=== PATIENT | male | born 1960 | race African-American/Black ===

== ENCOUNTER 2019-04-04 18:53 | Inpatient (IN) | payer BC, MEDICAID ==
[~2019-04-04] VITALS: Ht 185.4 cm; Wt 103.4 kg
[~2019-04-04 18:53] MED LIST: ASPI-378 PO; DOCU1CAP46 PO; FURO40TA4 PO; HYD25T PO; ISOS20TA56 PO; LOVA20TA4 PO; METH5TAB2 PO; NITR400A5 TL; NOR10T PO; SPIR25TA88 PO
[2019-04-04] MEDS ORDERED: ONDANSETRON HCL 4 MG/2 ML VIAL IV ONE (19:30)
[2019-04-04] MEDS ORDERED: MORPHINE SULFATE 4 MG/ML SYR/VIAL IV ONE (19:30)
[2019-04-04] MEDS ORDERED: ASPirin 81 mg TAB PO ONE (19:30)
[2019-04-04 19:37] LABS: Basophils # (auto) 0 uL; Basophils % (auto) 0.7 % (0.0-2.0); Eosinophils # (auto) 0.1 uL; Eosinophils % (auto) 2.2 % (0.0-7.0); Hematocrit 35.7 % (41.0-53.0); Hemoglobin 12.1 g/dL (13.5-17.5); Lymphocytes # (auto) 2.3 uL; Lymphocytes % (auto) 46.5 % (10.0-50.0); Mean Corpuscular Hemoglobin 31.5 pg (28.0-32.0); Mean Corpuscular Hgb Conc. 33.8 g/dL (32.0-36.0); Mean Corpuscular Volume 93.2 fL (80.0-100.0); Monocytes # (auto) 0.5 uL; Monocytes % (auto) 9.1 % (0.0-12.0); Neutrophils # (auto) 2.1 uL; Neutrophils % (auto) 41.5 % (37.0-80.0); Nucleated Red Blood Cells % 0.1 %; Platelet Count (auto) 147 10^3/uL (140-450); Red Blood Cells 3.83 10^6/uL (4.5-5.90); Red Cell Distribution Width 15.1 % (11.8-14.3)
[2019-04-04 19:55] LABS: Chloride 112 mmol/L (98-107); Glucose 102 mg/dL (74-106); Potassium 4.3 mmol/L (3.5-5.1); Sodium 143 mmol/L (136-145)
[2019-04-04 19:58] LABS: Alanine Aminotransferase 22 U/L (16-61); Albumin 3.4 g/dL (3.4-5.0); Aspartate Aminotransferase 18 U/L (15-37); Blood Urea Nitrogen 8 mg/dL (7-18); Calcium 8.2 mg/dL (8.5-10.1); Carbon Dioxide 22 mmol/L (21-32); GFR African American 128 mL/min; GFR Non-African American 106 mL/min; Magnesium 2.1 mg/dL (1.6-2.6)
[2019-04-04 20:01] LABS: Alkaline Phosphatase 96 U/L (45-117); Bilirubin, Total 0.3 mg/dL (0.2-1.0); Total Protein 6.6 g/dL (6.4-8.2)
[2019-04-04] MEDS ORDERED: FUROSEMIDE 40 MG/4 ML VIAL IV ONE (20:15)
[2019-04-04 21:08] LABS: Anion Gap 9 (5-15)
[2019-04-04] MEDS ORDERED: TEMAZEPAM 15 MG CAP PO PRN (21:45)
[2019-04-04] MEDS ORDERED: ONDANSETRON HCL 4 MG/2 ML VIAL IV PRN (21:45)
[2019-04-04] MEDS ORDERED: MORPHINE SULF INJ 2 MG/ML SYRINGE 1ML IV PRN (21:45)
[2019-04-04] MEDS ORDERED: ACETAMINOPHEN 325 MG TAB PO PRN (21:45)
[2019-04-04] MEDS: ISOSORBIDE MONONITRATE IR 20 MG TAB PO SCH (22:00)
[2019-04-04] MEDS: hydrALAZINE HCL 25 MG TAB PO SCH (22:00)
[2019-04-04] MEDS: ATORVASTATIN 20 MG TAB PO SCH (22:09)
[2019-04-04] MEDS: FAMOTIDINE 20 MG TAB PO SCH (22:09)
[2019-04-04 23:07] VITALS: BP 123/70
--- NOTE | 2019-04-04 23:07 | NUR ---
Telemetry admit from [facility] WRIGHT admitted to Telemetry unit. Patient oriented to FRANCE GARZA, primary RN, unit, room, bed, and unit policies regarding patient care and visiting hours. Patient now on continuous telemetry monitoring, tele box # 4 and telemetry reading on arrival to unit is sinus rhythm. Patient placed on bedside oxygen, weighed by bedscale and encouraged to call as needed. All questions and concerns addressed, patient verbalized understanding. Bed is locked in lowest position, side rails x 2 are up, and call light is within reach.
[2019-04-05] VITALS (7 sets, daily range): BP systolic 87–127; BP diastolic 42–81
[2019-04-05] MEDS: NITROGLYCERIN 0.4 MG SL TAB SL PRN ×2 (00:07→02:11)
--- NOTE | 2019-04-05 00:10 | NUR ---
CHEST PAIN Patient complaining of left sided chest pain (pain scale 8/10). Patient denies radiation, nausea, headache, or dizziness at this time. Patient is complaining of mild shortness of breath at this time and is currently on nasal cannula 2L. Patient states the chest pain has been on and off for the past 5 days. Patient states the chest pain is aggravated with both activity and at rest. Patient's vital signs are the following: BP: 123/70, HR: 86, RR: 16, TEMP: 97.8, and SPO2: 97% on 2L NC. EKG was performed and signed off by KAYA Gutierrez and placed in hardchart. Patient has a blood draw for troponin ordered for 0100 today. Nitroglycerin has been administered and patient states the chest pain is subsiding. Patient now rates the chest pain as 6/10.
--- NOTE | 2019-04-05 01:00 | NUR ---
REASSESSMENT: CHEST PAIN Patient noted laying in bed watching television with no S/S of distress noted. Even and unlabored respirations noted. Patient states the chest pain is (5/10). Bed is locked in lowest position, side rails x 2 are up, and call light is within reach.
[2019-04-05] MEDS ORDERED: SACU1TAB7 PO (01:08)
[2019-04-05] MEDS ORDERED: METH10T PO (01:08)
[2019-04-05] MEDS ORDERED: APIX2.5T PO (01:08)
[2019-04-05] MEDS ORDERED: ASPI-404 PO (01:08)
[2019-04-05] MEDS ORDERED: FURO1TAB32 PO (01:08)
[2019-04-05] MEDS ORDERED: ATOR20TA50 PO (01:08)
[2019-04-05] MEDS ORDERED: CAR3125T PO (01:08)
[2019-04-05] MEDS: HYDROcodone-ACET 5/325MG TAB PO PRN ×3 (01:42→21:54)
--- NOTE | 2019-04-05 02:55 | NUR ---
ROUNDS Patient laying in bed with eyes closed, even and unlabored respirations noted. No S/S of distress/SOB or pain noted. Bed is locked in lowest position, side rails x 2 are up, and call light is within reach.
[2019-04-05] MEDS ORDERED: FUROSEMIDE 20 MG/2 ML VIAL IV SCH (06:00)
--- NOTE | 2019-04-05 07:34 | NUR ---
CLOSING SHIFT NOTE Endorsed patient care to Carmen WEATHERS.
[2019-04-05] MEDS: FAMOTIDINE 20 MG TAB PO SCH ×2 (09:22→21:52)
[2019-04-05] MEDS: hydrALAZINE HCL 25 MG TAB PO SCH (09:23)
[2019-04-05] MEDS: ISOSORBIDE MONONITRATE IR 20 MG TAB PO SCH (09:23)
[2019-04-05 09:26] LABS: Calcium 8.4 mg/dL (8.5-10.1); Potassium 4.2 mmol/L (3.5-5.1)
[2019-04-05] MEDS ORDERED: SPIRONOLACTONE 25 MG TAB PO SCH (10:00)
[2019-04-05] MEDS ORDERED: ASPirin 81 mg TAB PO SCH (10:00)
[2019-04-05 10:35] LABS: Basophils # (auto) 0 uL; Basophils % (auto) 0.4 % (0.0-2.0); Eosinophils # (auto) 0.1 uL; Eosinophils % (auto) 1.4 % (0.0-7.0); Hematocrit 39.2 % (41.0-53.0); Hemoglobin 13.1 g/dL (13.5-17.5); Lymphocytes # (auto) 1.4 uL; Lymphocytes % (auto) 19.8 % (10.0-50.0); Mean Corpuscular Hemoglobin 31.3 pg (28.0-32.0); Mean Corpuscular Hgb Conc. 33.4 g/dL (32.0-36.0); Mean Corpuscular Volume 93.9 fL (80.0-100.0); Monocytes # (auto) 0.7 uL; Monocytes % (auto) 9.8 % (0.0-12.0); Neutrophils # (auto) 4.8 uL; Neutrophils % (auto) 68.6 % (37.0-80.0); Nucleated Red Blood Cells % 0.1 %; Platelet Count (auto) 137 10^3/uL (140-450); Red Blood Cells 4.18 10^6/uL (4.5-5.90); Red Cell Distribution Width 15.5 % (11.8-14.3); White Blood Cell 6.9 10^3/uL (4.4-10.8)
--- NOTE | 2019-04-05 10:56 | NUR ---
CONTACTED DR. ATKINSON TO UPDATE M.D. PATIENT STATES TAKES 38 MG OF METHADONE AT HOME VIA CLINIC CALLED AGES. Diana STATED TO VERIFY DOSE WITH CLINIC.
--- NOTE | 2019-04-05 11:00 | NUR ---
CALLED [facility] [phone], STAFF MEMBER REPORTED PATIENT IS GIVEN [address] ATKINSON UPDATED. NEW ORDERS GIVEN.
[2019-04-05] MEDS ORDERED: APIX5TAB OR (13:52)
--- NOTE | 2019-04-05 14:00 | NUR ---
ELIQUIS DOSAGE ADJUSTED IN RECONCILE MEDS. CALLED PATIENT'S PREFERRED PHARMACY. PHARMACIST STATES PATIENTS PRESCRIPTION IS 5MG BID, LAST FILLED IN SEPTEMBER 2018 WITH A QUANTITY OF 60. PATIENT STATES HE DOES NOT KNOW THE MG HE TAKES DAILY, BUT THE LAST TIME HE TOOK IT WAS LAST WEEK SOMETIME.
--- NOTE | 2019-04-05 16:30 | NUR ---
REPORT: Received report from SARAHY Morales. Assumed care of patient.
--- NOTE | 2019-04-05 16:38 | NUR ---
REPORT GIVEN TO GWEN Gamez. GWEN MADE AWARE OF PATIENT ELIQUIS RECONCILE MED, AND THAT IT IS NOT CURRENTLY IN THE [facility]. R.Tatiana. UPDATED THAT PATIENT IS AWAITING DR. NICHOLSON'S CONSULT. PATIENT IS ALSO AWAITING METHADONE MEDICATION. FAXED OVER INFORMATION AND SIGNED MEDICAL RELEASE FORMS TO [facility], PER [facility] REQUEST [facility] REQUESTING DOCUMENTATION OF PATIENT MG DOSAGE BEFORE ADMINISTERING MEDICATION. SARAHY HIDALGO. AWARE OF SITUATION.
[2019-04-05] MEDS ORDERED: METHADONE HCL 10 MG TAB PO ONE (17:30)
[2019-04-05] MEDS: FUROSEMIDE 20 MG/2 ML VIAL IV SCH (18:00)
--- NOTE | 2019-04-05 18:37 | NUR ---
IV ACCESS: Went to administer Lasix to right upper arm #20. IV infiltrated. Notified oncall Hospitalist, Zenon KIRKPATRICK. Order received for Lasix 40mg PO x1.
[2019-04-05] MEDS ORDERED: FUROSEMIDE 40 MG TAB PO ONE (18:45)
--- NOTE | 2019-04-05 19:11 | NUR ---
CLOSING SHIFT NOTE: Report given to Yaneli GARCIA. Endorsed care of patient. RN aware patient without IV access and pending oral Lasix administration.
[2019-04-05] MEDS: ATORVASTATIN 20 MG TAB PO SCH (21:52)
[2019-04-05] MEDS: SACUBITRIL-VALSARTAN 24mg/26mg TAB PO SCH (21:52)
[2019-04-05] MEDS ORDERED: FAMOTIDINE 20 MG TAB PO SCH (22:00)
[2019-04-06 05:10] VITALS: BP 102/73
[2019-04-06] MEDS: FUROSEMIDE 20 MG/2 ML VIAL IV SCH ×3 (06:02→19:57)
--- NOTE | 2019-04-06 07:15 | NUR ---
Opening Note Received report from manufacturing shift supervisor RN. Patient is awake, alert and oriented x4. No signs or symptoms of distress noted at this time. Patient states back pain 5/10, will medicate per orders. Reviewed plan of care with patient, patient verbalized understanding. Bed in low and locked position, call light within reach. Will continue to monitor Q1 hour and PRN.
[2019-04-06 09:00] VITALS: BP 106/69
[2019-04-06] MEDS: SACUBITRIL-VALSARTAN 24mg/26mg TAB PO SCH ×2 (09:31→21:04)
[2019-04-06] MEDS: ASPirin 81 mg TAB PO SCH (09:31)
[2019-04-06] MEDS: FAMOTIDINE 20 MG TAB PO SCH ×2 (09:31→21:04)
[2019-04-06] MEDS: METHADONE HCL 10 MG TAB PO SCH (09:33)
[2019-04-06] MEDS ORDERED: METHADONE HCL 10 MG TAB PO SCH (10:00)
[2019-04-06 10:52] LABS: Basophils # (auto) 0.1 uL; Basophils % (auto) 1.6 % (0.0-2.0); Eosinophils # (auto) 0.1 uL; Eosinophils % (auto) 2.7 % (0.0-7.0); Hematocrit 40.4 % (41.0-53.0); Hemoglobin 13.6 g/dL (13.5-17.5); Lymphocytes # (auto) 1.2 uL; Lymphocytes % (auto) 23.4 % (10.0-50.0); Mean Corpuscular Hemoglobin 31.6 pg (28.0-32.0); Mean Corpuscular Hgb Conc. 33.7 g/dL (32.0-36.0); Mean Corpuscular Volume 93.8 fL (80.0-100.0); Monocytes # (auto) 0.6 uL; Monocytes % (auto) 11.1 % (0.0-12.0); Neutrophils # (auto) 3.2 uL; Neutrophils % (auto) 61.2 % (37.0-80.0); Nucleated Red Blood Cells % 0.1 %; Platelet Count (auto) 147 10^3/uL (140-450); Red Blood Cells 4.31 10^6/uL (4.5-5.90); Red Cell Distribution Width 15.9 % (11.8-14.3); White Blood Cell 5.2 10^3/uL (4.4-10.8)
[2019-04-06 11:05] LABS: Calcium 8.8 mg/dL (8.5-10.1); Magnesium 2.4 mg/dL (1.6-2.6); Potassium 4.2 mmol/L (3.5-5.1)
[2019-04-06 11:15] LABS: BUN/Creatinine Ratio 11.3
--- NOTE | 2019-04-06 11:25 | NUR ---
Urine sample collected and sent to lab
[2019-04-06 11:48] LABS: Alcohol, Urine < 3.0 mg/dL (0-5); Amphetamine Screen, Urine NEGATIVE (NEGATIVE); Barbiturate Scree,Urine NEGATIVE (NEGATIVE); Benzodiazephine Screen, Urine NEGATIVE (NEGATIVE); Cannabinoid Screen, Urine NEGATIVE (NEGATIVE); Cocaine Screen, Urine NEGATIVE (NEGATIVE); Opiate Scree,Urine NEGATIVE (NEGATIVE); Phencyclidine Screen, Urine NEGATIVE (NEGATIVE)
[2019-04-06 13:00] VITALS: BP 113/68
[2019-04-06 17:00] VITALS: BP 95/61
--- NOTE | 2019-04-06 19:37 | NUR ---
Closing Note Report given to care advocate. No signs or symptoms of distress noted at this time.
[2019-04-06 19:57] VITALS: BP 112/68
[2019-04-06] MEDS: HYDROcodone-ACET 5/325MG TAB PO PRN (21:05)
[2019-04-06] MEDS: ATORVASTATIN 20 MG TAB PO SCH (21:05)
[2019-04-06 22:10] VITALS: BP 93/53
[2019-04-07 05:32] VITALS: BP 107/63
[2019-04-07] MEDS: FUROSEMIDE 20 MG/2 ML VIAL IV SCH ×2 (06:58→17:16)
--- NOTE | 2019-04-07 07:35 | NUR ---
Opening Note Received report from shift supervisor rn RN. Patient is awake, alert and oriented x4. No signs or symptoms of distress noted at this time. Patient states back pain 5/10, will medicate per orders. Reviewed plan of care with patient, patient verbalized understanding. Bed in low and locked position, call light within reach. Will continue to monitor Q1 hour and PRN.
[2019-04-07 09:00] VITALS: BP 104/61
--- NOTE | 2019-04-07 09:23 | NUR ---
Midline Update Per primary RN, Summer, no need for midline at this time as pt has IV access. Advised to call at ext. [phone] if in need of midline.
[2019-04-07] MEDS: FAMOTIDINE 20 MG TAB PO SCH ×2 (09:37→21:01)
[2019-04-07] MEDS: SACUBITRIL-VALSARTAN 24mg/26mg TAB PO SCH ×2 (09:37→21:01)
[2019-04-07] MEDS: ASPirin 81 mg TAB PO SCH (09:37)
[2019-04-07] MEDS: METHADONE HCL 10 MG TAB PO SCH (09:38)
[2019-04-07 10:05] LABS: BUN/Creatinine Ratio 12.4; Calcium 8.7 mg/dL (8.5-10.1); Potassium 3.7 mmol/L (3.5-5.1)
[2019-04-07] MEDS ORDERED: POTASSIUM CHL 20 Meq TABLET PO ONE (12:00)
[2019-04-07] MEDS ORDERED: ADENOSINE 86 MG in GIVE UN-DILUTED 0 ML IV STA (12:17)
--- NOTE | 2019-04-07 12:25 | NUR ---
Patient taken down for stress test
[2019-04-07 13:00] VITALS: BP 102/67
[2019-04-07] MEDS ORDERED: SACU1TAB PO (13:02)
[2019-04-07 17:00] VITALS: BP 101/64
--- NOTE | 2019-04-07 19:29 | NUR ---
Closing Note Report given to night patrol inspector RN. No signs or symptoms of distress noted at this time.
[2019-04-07] MEDS: ATORVASTATIN 20 MG TAB PO SCH (21:00)
[2019-04-07] MEDS: HYDROcodone-ACET 5/325MG TAB PO PRN (21:01)
[2019-04-07 22:00] VITALS: BP 111/72
[2019-04-08 05:18] VITALS: BP 102/67
[2019-04-08] MEDS: FUROSEMIDE 20 MG/2 ML VIAL IV SCH (05:55)
--- NOTE | 2019-04-08 07:40 | NUR ---
Opening Patient in bed, bed in lowest position, call light within reach. No distress noted at this time. Will f/u with morning assessment. Awaiting results and clearance per cardiology to discharge this patient. Patient completed a stress test yesterday 04/07 however it has not been read. Will page cardio regarding this manner. Echo has been completed, however no results for this.
[2019-04-08 08:00] VITALS: BP 105/64
[2019-04-08] MEDS: FAMOTIDINE 20 MG TAB PO SCH (10:09)
[2019-04-08] MEDS: ASPirin 81 mg TAB PO SCH (10:10)
[2019-04-08] MEDS: SACUBITRIL-VALSARTAN 24mg/26mg TAB PO SCH (10:10)
[2019-04-08] MEDS: METHADONE HCL 10 MG TAB PO SCH (10:17)
--- NOTE | 2019-04-08 11:00 | NUR ---
paging nannette (cardio) per stress test, results, and cardiac clearance.
[2019-04-08 12:00] VITALS: BP 124/63
[2019-04-08 16:24] VITALS: BP 102/67
[2019-04-08 17:00] VITALS: BP 114/66
--- NOTE | 2019-04-08 17:50 | NUR ---
dr chung talking with patient about the need to follow up with cardiology, continue prescribed medications.
--- NOTE | 2019-04-08 17:51 | NUR ---
closing Discharge instructions given as ordered. Encourage to follow up with PMD as instructed. All questions and concerns addressed. Patient verbalized understanding. IV removed with catheter intact, pressure dressing applied. Telemetry unit returned to ICU. Patient accompanied by family member. No distress noted at time of departure. Patient is educated on office numbers to call and make an appointment with cardiology and gi to follow up with his chronic illnesses per dr chung's request. Patient understands, and is aware his prescription has been called in to his preferred pharmacy.
== END 2019-04-08 17:51 | disposition home or self-care (01) | DRG 194 ==
LOC: ER 18:54 → TELE 18:55 → TELE-EAST 23:14
PROVIDERS: ADMIT Nurse Practitioner; ATTEND Internal Medicine
DX: I11.0 Hypertensive heart disease with heart failure (principal); I27.20 Pulmonary hypertension, unspecified; I42.0 Dilated cardiomyopathy; I34.0 Nonrheumatic mitral (valve) insufficiency; I50.43 Acute on chronic combined systolic (congestive) and diastolic (congestive) heart failure; E11.9 Type 2 diabetes mellitus without complications; E66.9 Obesity, unspecified; E78.5 Hyperlipidemia, unspecified; I25.2 Old myocardial infarction; Z68.30 Body mass index [BMI] 30.0-30.9, adult; Z82.49 Family history of ischemic heart disease and other diseases of the circulatory system; Z95.2 Presence of prosthetic heart valve; Z83.3 Family history of diabetes mellitus; Z91.19 Patient's noncompliance with other medical treatment and regimen
CPT/HCPCS: 36415; 71046; 78452; 80048; 80053; 80061; 80307; 83735; 83880; 84484; 85025; 93005; 93017; 93306; G0378; J0153; J2405